=== PATIENT | female | born 1975 | race Hispanic/Latino ===

== ENCOUNTER 2017-07-23 06:34 | Day surgery (SDC) | payer BC ==
[2017-07-20 14:04] VITALS: BMI 22.3
[2017-07-23] MEDS ORDERED: Bupivacaine HCl 0.5% PF (30 ml) Inj ONE (07:09)
[2017-07-23] MEDS ORDERED: Clindamycin 600mg/50ml NS 600 MG/50 ML BAG IVPB ONE (07:10)
[2017-07-23] MEDS ORDERED: Silver Nitrate Topical - Stick ONE (07:10)
[2017-07-23] MEDS ORDERED: Propofol 10 mg/ml Inj (20 ML) ONE (07:20)
[2017-07-23] MEDS ORDERED: Succinylcholine 200 mg/10 ml Inj IV ONE (07:21)
[2017-07-23] MEDS ORDERED: Midazolam 2 MG/2 ML VIAL ONE (07:21)
[2017-07-23] MEDS ORDERED: Rocuronium 10 mg/ml (5 ml) ONE ×2 (07:21→09:40)
[2017-07-23] MEDS ORDERED: ePHEDrine 50 mg/ml Inj ONE (07:21)
[2017-07-23] MEDS ORDERED: Neostigmine 1:1000 (1 mg/ml) Inj ONE (07:27)
[2017-07-23] MEDS ORDERED: Dexamethasone 4 mg/1 ml ONE (07:35)
[2017-07-23] MEDS ORDERED: Phenylephrine 10 mg/ml Inj ONE (07:35)
[2017-07-23 07:39] LABS: HEMOGLOBIN 14.2 g/dL (12.0-16.0); MEAN CELL VOLUME 95.2 fl (81.0-99.0); MEAN CORPUSCULAR HEMOGLOBIN 32.1 pg (27.0-31.0); MEAN CORPUSCULAR HGB CONC 33.7 g/dL (33.0-37.0); RBC 4.44 Mil/uL (3.80-5.20); RED CELL DISTRIBUTION WIDTH 12.3 % (11.5-14.5); WHITE BLOOD COUNT 5.6 K/uL (4.8-10.8)
[2017-07-23] MEDS ORDERED: Lactated Ringer's 1,000 ML IV ONE ×2 (09:05→09:15)
[2017-07-23] MEDS ORDERED: Sevoflurane - Inhalation Anesthetic Liq (250 ml) ONE (10:33)
--- NOTE | 2017-07-23 11:50 | PCM.SURG1 ---
Surgeon's Initial Post Op Note - Surgeon's Notes Surgeon: Jane Reeves Eyeglass Frames Polisher: [id number] Type of Anesthesia: General Endo, Local Pre-Operative Diagnosis: Endometriosis, Fibroids Operative Findings: Endometriosis, Fibroids Post-Operative Diagnosis: Endometriosis, Fibroids Operation Performed: Robotic Myomectomy and excision of endometrial implants Specimen/Specimens Removed: Endometriosis with peritoneum , Fibroid Estimated Blood Loss: EBL {In ML}: 25 Blood Products Given: N/A Drains Used: No Drains Post-Op Condition: Good Date of Surgery/Procedure: 07/23/17 Time of Surgery/Procedure: 09:00
[2017-07-23] MEDS: HYDROmorphone 0.5 mg/0.5 ml ISec IVP PRN ×3 (12:00→12:45)
[2017-07-23] MEDS ORDERED: oxyCODONE 5 mg Immediate Release Tab PO PRN (12:06)
[2017-07-23 15:46] VITALS: BP 105/70; PULSE 65; RESP 20; O2SAT 99
[2017-07-23 16:53] VITALS: TEMP 100.1
--- NOTE | 2017-08-04 09:04 | PCM.OP ---
Operative Report - Operative Report Date of Surgery/Procedure: 07/23/17 Time of Surgery/Procedure: 10:00 Surgeon: Dr. Markus Lara Esthetician Facialist: Dr. Norm Reeves Anesthesia/Sedation: general/Dr. Alexis Pre-Operative Diagnosis: abdominal pain and endometriosis Post-Operative Diagnosis: perirectal involvement Indication for Surgery: as above Operative Findings: as above Procedure/Operation Description: 1-Excision perirectal endometriosis (times two) . Brief History: This 42 year old woman was brought to the operating room by Dr. Mtz when he noted perirectal involvement of the endometriosis. Intraoperative general surgery consultation was requested. Description of the Procedure: The patient had already initiated the robotic procedure with Dr. Reeves (separate dictation). After taking control of the robotic console the two areas in question were examined by videoscopy. The first lesion, more proximal. was incised circumferentially with electrocautery and excised en-bloc with blunt and sharp dissection. This lesion was snet to pathology separately. The second lesion, more distal, Was removed in a similar manner and snet separately to pathology as well. Hemostasis was deemd adequate. The operation was then turned over to Dr. Reeves (separate dictation Dr. Reeves). Estimated Blood Loss: 5 cc Complications: none Specimen: perirectal endometriosis (times two) Discharge & Condition: stable
--- NOTE | 2017-08-05 05:17 | OP ---
PROCEDURE DATE: 07/23/2017 PREOPERATIVE DIAGNOSES: Dysmenorrhea, dyspareunia, pelvic pain, rule out endometriosis, and uterine fibroids symptomatic. POSTOPERATIVE DIAGNOSES: Dysmenorrhea, dyspareunia, pelvic pain, rule out endometriosis, and uterine fibroids symptomatic. PROCEDURE PERFORMED: Cystoscopy with bilateral ureteral catheterization, injection of dye, diagnostic hysteroscopy, robotic da Tg operative laparoscopy, myomectomy robotic, bilateral ureterolysis, excision of endometriosis, excision of anterior uterine endometriosis, and to be dictated separately by Dr. Lara excision of perirectal mass, suspicious for endometriosis. SURGEON: Norm Reeves MD TYPE OF ANESTHESIA: General endotracheal. SAMPLES: Multiple samples including the uterine fundus endometriosis, left periureteral endometriosis, posterior cervical endometriosis, right periureteral rectal endometriosis, right uterosacral endometriosis, anterior rectal endometriosis, right perirectal endometriosis and uterine fibroid. COMPLICATIONS: None. ESTIMATED BLOOD LOSS: 100 mL. INDICATION FOR THE PROCEDURE: The patient is a 42-year-old female with a history of dysmenorrhea and dyspareunia. Examination in the office revealed acute pain suspicious of endometriosis. She also had some fibroids, the largest one of which was posterior impinging on the sacrum. Prior to the surgery, the patient was counseled with regards to all risks and benefits of the procedure. She was consented and taken to the OR. DESCRIPTION OF PROCEDURE: After adequate anesthesia was obtained, the patient was placed in the dorsal lithotomy position. She was prepped and draped. The surgeon was gowned and gloved. At this point, a great attention was placed not to overextending or overflexing in the hips and to pad every area very well to avoid any pressure points. A time out was taken according to hospital policy and the procedure was started. A cystoscope was inserted into the bladder and under direct visualization, the bladder was visualized. A mccord cystoscopy was performed revealing presence of normal bladder. At this point, both ureteral ostia were identified to be in normal anatomical position. The left ureteral ostia was cannulized with an open-ended stent catheter all the way to the distal ureter. 5 mL of IC-Green were then injected. Attention was in the contralateral catheter where again 5 mL of IC-Green were injected. At this point, the cystoscope was removed and was replaced with a 16-Serbian [place]. Attention was in the vaginal area where the cervix was grasped, the cervix was dilated and the hysteroscope was inserted. The uterine cavity appeared to be normal. The cervical canal though was slightly distorted by the presence of a cervical fibroid, over although, the passage was very clear. Since the patient did not have any history of abnormal bleeding or heavy bleeding, I opted at this point not to intervene on the cervical fibroid as removing of the fibroid could have distorted the cervical canal and the patient was interested in preserving her fertility to the maximal ability possible. Attention was then on the abdomen site where after regowning and regloving, an open laparoscopic was performed by making an incision in the infraumbilical area and entered the abdominal cavity in a blunt fashion. Under direct visualization, three additional ports were inserted, left upper quadrant, left mid quadrant, and right upper quadrant. The da Tg robot was then docked. The pelvis was visualized revealing evidence of endometriosis in the pelvis both posteriorly and anteriorly. The uterus was distorted by the presence of a large posterior fibroid. Attention was first on this large posterior fibroid where an incision was made on the serosa of the uterus and then through the muscle layer. The fibroid was identified. A tenaculum was pulled in the fibroid and progressive dissection was performed with extreme care not to damage any muscle or to use excessive energy on the muscle. At this point, the fibroid was excised progressively without any complication. The defect was closed in layer using 2-0 V-Loc suture in multiple layers on the muscle side and then with a baseball type suture on the serosal layer. At this point, attention was anteriorly on the uterus where an implant of endometriosis was noticed in the anterior fundal part. It was excised, due to the large defect, it was closed with a running suture. At this point, attention was on the posterior cul-de-sac where again after elevating the left ovary, the ureters were identified and retroperitoneum was entered utilizing robotic scissors and progressive dissection was performed, dissecting area of peritoneum with endometriosis from the pelvic sidewall, starting at the pelvic rim all the way down with inferior aspect of the excision within the left uterosacral ligament. Attention was on the right hand side where again utilizing florescent, the ureter was identified. After identifying the ureter, the peritoneum was entered and progressive dissection again was performed all the way from the pelvic brim to ovarian fossa and dissecting all the way down, all the way to the right uterosacral ligament. Additional excision of endometriosis was performed in both right and left ovarian fossa with great care to preserve the vessels. Again, additional excision was performed on the left perirectal space and retrorectal space. There was an area on the rectum, which appeared to be effective with endometriosis. Dr. Lara from General Surgery performed that excision, he will dictate it separately. At this time, it was checked for hemostasis and appeared to be excellent. The plasma energy device was used to ablate some areas of inflammation, which was present on the posterior aspect of the uterus and some areas of the peritoneum. After this was done, it was checked for hemostasis and appeared to be excellent. All the instruments were removed. The incisions were closed with 0 PDS on the fascia and 4-0 Monocryl on the skin. At the end of the procedure, all tapes and instruments counts were correct. The patient tolerated the procedure well and was taken to the recovery room in excellent condition. Norm Reeves MD [facility]
== END 2017-07-23 20:40 | disposition home or self-care (01) ==
LOC: H.OPSURG 06:34 → H.PEDS 13:41 → H.OPSURG 20:40
PROVIDERS: ATTEND Obstetrics & Gynecology Reproductive Endocrinology
DX: N80.0 Endometriosis of uterus (principal); R10.2 Pelvic and perineal pain; N94.6 Dysmenorrhea, unspecified; D25.9 Leiomyoma of uterus, unspecified; N80.5 Endometriosis of intestine
CPT/HCPCS: 36415; 45171; 58558; 58662; 85027; 86850; 86900; 88305; C1729; J0330; J1100; J1170; J1885; J2001; J2250; J2370; J2405; J2704; J2710; J3010; J7030; J7040; J7120